=== PATIENT | female | born 2005 | race Hispanic/Latino ===

== ENCOUNTER 2025-08-12 08:06 | Emergency (ER) | payer BC ==
[~2025-08-12] VITALS: Ht 165.1 cm; Wt 59.0 kg
[2025-08-12 08:37] LABS: BASOPHILS % 0.2 % (0.0-1.0); EOSINOPHILS % 0.0 % (0.0-6.0); LYMPHOCYTES % 3.2 % (18.0-39.1); MONOCYTES % 5.7 % (4.4-11.3); NEUTROPHILS % 90.5 % (38.7-80.0); RED CELL DISTRIBUTION WIDTH 12.0 % (11.7-14.4)
[2025-08-12] MEDS: DEXAMETHASONE SOD PHOS 10 MG/1 ML VIAL IV ONE (08:39)
[2025-08-12] MEDS: SODIUM CHLORIDE 0.9% 1000ML 1,000 ML IV SCH (08:40)
[2025-08-12] MEDS: ACETAMINOPHEN 325 MG TAB PO ONE (08:40)
[2025-08-12] MEDS: ONDANSETRON HCL INJ 2MG/ML 2ML 2 MG/ML VIAL IV STA (08:40)
[2025-08-12 09:06] LABS: EST GLOMERULAR FILTRATION RATE 111.0 ML/MIN (>=60)
[2025-08-12 09:07] LABS: CORONAVIRUS COVID-19 AG NEGATIVE (NEGATIVE); STREPTOCOCCUS GRP A ANTIGEN NEGATIVE (NEGATIVE)
[2025-08-12] MEDS ORDERED: ONDANSETRON ODT4 MG PO (09:25)
[2025-08-12 09:51] VITALS: PULSE 102; RESP 17; TEMP 99.5
[2025-08-12 10:25] VITALS: BP 107/64; O2SAT 98
[2025-08-12 11:05] LABS: LYMPHOCYTES % (MANUAL) 1 % (19-48); MONOCYTES % (MANUAL) 1 % (3.4-9.0); NEUTROPHILS % (MANUAL) 97 % (40-74); REACTIVE LYMPHOCYTES 1
[2025-08-12 11:06] LABS: PLATELET ESTIMATE ADEQUATE; PLATELET MORPHOLOGY COMMENT NORMAL; RBC MORPHOLOGY COMMENT NORMAL
== END 2025-08-12 10:00 | disposition home or self-care (01) ==
LOC: ER 08:14
DX: R50.9 Fever, unspecified (principal); J06.9 Acute upper respiratory infection, unspecified; Z11.52 Encounter for screening for COVID-19
CPT/HCPCS: 36415; 80053; 83518; 84702; 85025; 87070; 87428; 99284; J1100; J2405; J7030